=== PATIENT | female | born 1980 | race Caucasian/White ===

== ENCOUNTER → 2019-12-24 08:00 | Outpatient (BNVA) | payer SELFPAY | PROVIDERS: Visit Provider Nurse Practitioner Family | DX: G56.03 Carpal tunnel syndrome, bilateral upper limbs (principal); Z12.31 Encounter for screening mammogram for malignant neoplasm of breast; N92.1 Excessive and frequent menstruation with irregular cycle; Z79.899 Other long term (current) drug therapy; E78.2 Mixed hyperlipidemia; E55.9 Vitamin D deficiency, unspecified; F33.1 Major depressive disorder, recurrent, moderate | CPT/HCPCS: 80053; 80061; 81001; 82306; 83036; 84443; 85025 ==

== ENCOUNTER → 2020-01-17 15:14 | Outpatient (BNVA) | payer SELFPAY | PROVIDERS: Visit Provider Nurse Practitioner Family | DX: D64.9 Anemia, unspecified (principal); F33.1 Major depressive disorder, recurrent, moderate | CPT/HCPCS: 80053; 82607; 82746; 83540; 84207; 84425; 85025 ==

== ENCOUNTER → 2023-07-07 15:15 | Outpatient (BNVA) | payer OTHER, SELFPAY | PROVIDERS: PCP Nurse Practitioner Family; Visit Provider Nurse Practitioner Family | DX: R30.0 Dysuria (principal) | CPT/HCPCS: 81000 ==

== ENCOUNTER → 2023-07-29 12:17 | Outpatient (BNVA) | payer OTHER, SELFPAY | PROVIDERS: PCP Nurse Practitioner Family; Visit Provider Nurse Practitioner Family | DX: N39.0 Urinary tract infection, site not specified (principal) | CPT/HCPCS: 81000 ==

== ENCOUNTER → 2023-08-01 11:35 | Outpatient (BNVA) | payer OTHER, SELFPAY | PROVIDERS: PCP Nurse Practitioner Family; Referring Provider Nurse Practitioner Family; Visit Provider Nurse Practitioner Women's Health | DX: R10.2 Pelvic and perineal pain (principal) | CPT/HCPCS: 84315; 87491; 87591 ==

== ENCOUNTER → 2023-08-29 14:12 | Outpatient (BNVA) | payer OTHER, SELFPAY | PROVIDERS: PCP Nurse Practitioner Family; Visit Provider Nurse Practitioner Women's Health | DX: D25.9 Leiomyoma of uterus, unspecified (principal) | CPT/HCPCS: 76830 ==

== ENCOUNTER → 2023-10-24 14:34 | Outpatient (BNVA) | payer OTHER, SELFPAY | PROVIDERS: PCP Nurse Practitioner Family; Visit Provider Obstetrics & Gynecology | DX: Z01.419 Encounter for gynecological examination (general) (routine) without abnormal findings (principal) | CPT/HCPCS: 87624 ==

== ENCOUNTER 2024-01-05 10:07 | Day surgery (SDC) | payer OTHER, SELFPAY ==
--- NOTE | 2024-01-04 23:02 | W.PM.OPSFHP ---
Same Day Surgery H&P Indication for Procedure/HPI DATE OF PROCEDURE: January 04, 2024 CHIEF COMPLAINT/INDICATIONFOR SURGICAL PROCEDURE: abnormal uterine bleeding PREOP DIAGNOSIS: abnormal uterine bleeding PLANNED PROCEDURE: Operation Date: 01/05/24 11:50 Proposed Procedures p Hysterosocpy, endometrial sampling, possible endometrial polypectomy 24983(Not Applicable) - Alejandro Dwyer MD s possible endometrial polypectomy 77597(Not Applicable) - Alejandro Dwyer MD 43 y.o. Ec4 SA5 Periods varies, ranging from 1 day of bleeding to 12-13 days of bleeding Can be very heavy and painful now scheduled for hysteroscopy, endometrial sampling, possible endometrial polypectomy Medications/Allergies* Allergies/Adverse Reactions Allergy/AdvReac Type Severity Reaction Status Date / Time amoxicillin Allergy Unknown Verified 10/24/23 13:48 ciprofloxacin [From Cipro] Allergy unknown Verified 10/24/23 13:48 Penicillins Allergy unknown Verified 10/24/23 13:48 Sulfa (Sulfonamide Allergy unknown Verified 10/24/23 13:48 Antibiotics) Pertinent History/Comorbid Conditions* Medical History (Updated 09/30/23 @ 16:17 by Iraida Fountain NP) Pelvic pain Lower respiratory infection Anxiety Otitis media, right Anemia Fatigue Mixed hyperlipidemia Medication management Vitamin D deficiency Breast cancer screening by mammogram Metrorrhagia Opiate withdrawal Patient has history of opiate use, but has been on Naltrexone. She has only had one setback in 1.5 years. Fibromyalgia Anxiety and depression History of miscarriage She has had 5 miscarriages, not counting ectopic Ectopic Patient has had 3 ectopic pregnancies, she believes on the right, and only has left ovary. Depression Anxiety Pertinent Exam Findings alert, oriented x 3, clear to auscultation bilaterally and regular rate & rhythm Recommendations Surgery/Procedure today Coding Level of Care Code Acute Code for Chg Fwd Time Spent (min) 20
[2024-01-05] VITALS (10 sets, daily range): BP systolic 101–117; BP diastolic 65–77; PULSE 60–86; RESP 17–68; TEMP 36.6–36.8; O2SAT 97–99; BMI 32.3
--- NOTE | 2024-01-05 11:03 | P.ANESASSM_ITS ---
Pre-Anesthetic Assessment Height/Weight: Height 1.68 m Weight 90.718 kg Temp Pulse Resp BP Pulse Ox O2 Del Method 98.2 F 66 18 115/74 97 Room Air 01/05/24 10:41 01/05/24 10:41 01/05/24 10:41 01/05/24 10:41 01/05/24 10:41 01/05/24 10:51 Preop Diagnosis: abnormal uterine bleeding Operation Date: 01/05/24 11:50 Proposed Procedures p Hysterosocpy, endometrial sampling, possible endometrial polypectomy 05122(Not Applicable) - Alejandro Dwyer MD s possible endometrial polypectomy 06468(Not Applicable) - Alejandro Dwyer MD Familial anesthetic complications: none Was Beta Susi taken within 24 hours: N/A Was Clonidine taken within 24 hours: N/A Last intake: Intake Last Liquid Date 01/04/24 Last Liquid Time 20:30 Last Solid Date 01/04/24 Last Solid Time 20:30 Social Tobacco and No alcohol Exam alert, oriented x 3 and regular rate & rhythm Airway Submandibular: within normal limits Cervical ROM: within normal limits Mallampati: Class II Dentition: chipped Comments: Comments: Poor dentition Pulmonary Chronic Obstructive Pulmonary Disease CV/HEM Anemia Neuropsych Anxiety and Depression Anesthetic Plan ASA status: 3 Anesthesia: General Medications/Allergies Home Medications Medication Instructions Recorded Confirmed Last Taken Type nystatin 100,000 unit/gram topical 1 applic topical .at bedtime 14 08/03/23 01/04/24 01/04/24 Rx cream days #30 grams naltrexone 50 mg tablet See Rx Instructions .Route 11/02/23 01/04/24 01/04/24 Rx .COMPLEX #90 tabs venlafaxine 37.5 mg See Rx Instructions .Route 11/21/23 01/04/24 01/04/24 Rx capsule,extended release 24 hr .COMPLEX #90 caps Allergies Allergy/AdvReac Type Severity Reaction Status Date / Time amoxicillin Allergy Unknown Verified 10/24/23 13:48 ciprofloxacin [From Cipro] Allergy unknown Verified 10/24/23 13:48 Penicillins Allergy unknown Verified 10/24/23 13:48 Sulfa (Sulfonamide Allergy unknown Verified 10/24/23 13:48 Antibiotics) [facility] Anesthesia Medical History Pelvic pain Lower respiratory infection Anxiety Otitis media, right Anemia Fatigue Mixed hyperlipidemia Medication management Vitamin D deficiency Breast cancer screening by mammogram Metrorrhagia Opiate withdrawal Patient has history of opiate use, but has been on Naltrexone. She has only had one setback in 1.5 years. Fibromyalgia Anxiety and depression History of miscarriage She has had 5 miscarriages, not counting ectopic Ectopic Patient has had 3 ectopic pregnancies, she believes on the right, and only has left ovary. Depression Anxiety Female Reproductive History Date of last menstrual period: 12/09/23 Data Anesthesia Cardiac Studies: No Data to Display
[2024-01-05] MEDS: sodium chloride 0.9% 1,000 ML 30 ML IV (11:27)
[2024-01-05 11:30] LABS: OR HCG Qualitative Urine Negative (Negative)
--- NOTE | 2024-01-05 12:10 | PM.OP ---
Operative Report Date of procedure: January 05, 2024 Pre-op diagnosis: abnormal uterine bleeding Post-op diagnosis: same Post-op findings: normal endometrial cavity No polyps / fibroids Minimal endometrial tissue Procedure done: hysteroscopy Curettage of uterus Implants: none Specimens removed/disposition: endometrial curettings Surgeon: Alejandro Dwyer MD Anesthesia: MAC Estimated blood loss (mL): 5 Complications: none Findings: normal endometrial cavity No polyps / fibroids Minimal endometrial tissue Condition: stable Disposition: PACU Brief History: 43 y.o. with abnormal uterine bleeding Procedure: Informed consent signed. Patient was taken to the operating room. Anesthesia was induced. Patient was placed in dorsolithotomy position, prepped and draped for hysteroscopy. A bivalve speculum was placed in the vagina. The anterior lip of the cervix was grasped with a sharp-toothed tenaculum. The cervix was serially dilated with Hegar dilators. . A hysteroscope was placed into the endometrial cavity. The endometrial cavity was seen to be normal. There were no polyps or fibroids. There was a minimal amount of endometrial tissue. The hysteroscope was then removed. Endometrial curettage was done with a sharp curette. Endometrial tissue was sent to pathology. The sharp-toothed tenaculum was removed. There was no bleeding from the endometrial cavity or cervix. The patient was then placed supine and awakened and taken to the PACU. Postop condition: stable EBL: 5 cc Sponge and instruments counts were normal x 2 Complications: none
--- NOTE | 2024-01-05 13:51 | ANE.PACU2 ---
Inpatient post-anesthesia follow up: Airway intact: Yes Vital signs: Temperature 98 F Pulse Rate 64 Respiratory Rate 17 Blood Pressure 112/77 Pulse Oximetry 98 Oxygen Delivery Me thod Room Air Oxygen Flow Rate 6 Fraction of Inspir ed Oxygen Hydration adequate: Yes Nausea and vomiting: No Pain level: 2 Mental status: Baseline
== END 2024-01-05 13:31 | disposition home or self-care (01) ==
PROVIDERS: Anesthesiology; PCP Nurse Practitioner Family; Visit Provider Obstetrics & Gynecology
PROC: 0UJD8ZZ Inspection of Uterus and Cervix, Via Natural or Artificial Opening Endoscopic (ICD-10-PCS; CPT 58555; principal; 2024-01-05 11:50)
DX: N93.9 Abnormal uterine and vaginal bleeding, unspecified (principal); E78.2 Mixed hyperlipidemia; M79.7 Fibromyalgia
CPT/HCPCS: 58558; 81025; 88305; J1100; J1170; J1885; J2250; J2405; J2704; J3010; J7030